=== PATIENT | female | born 1990 | race Caucasian/White ===

== ENCOUNTER 2016-12-17 23:27 | Emergency (ER) | payer OTHER ==
[2016-12-18] MEDS ORDERED: LIDOCAINE 1%/EPINEPHRINE INJ 20 ML VIAL INJ ONE
--- NOTE | 2016-12-18 00:52 | ER Document Report ---
ED General - General Chief Complaint: Laceration Stated Complaint: LEFT INDEX FINGER LACERATION Time Seen by Provider: 12/17/16 23:46 Notes: Patient is a 26-year-old female without past medical history, up-to-date on her tetanus immunization who presents with a flap type laceration to her left index finger. Patient sustained this laceration approximately 10 hours ago at work. States that it was cut on a piece of sheet metal. Since that time she has had a dull, constant, aching pain to the area. She has tried ibuprofen with minimal improvement of pain. Stretching area worsens the pain. No history of similar injury in the past. She denies any limited range of motion of the digit. She has not seen her primary care doctor regarding today's concerns. TRAVEL OUTSIDE OF THE [place] IN LAST 30 DAYS: No Past Medical History - General Information source: Patient - Social History Smoking Status: Never Smoker Frequency of alcohol use: Occasional Drug Abuse: None Lives with: Spouse/Significant other Family History: Reviewed & Not Pertinent Patient has suicidal ideation: No Patient has homicidal ideation: No Renal/ Medical History: Denies: Hx Peritoneal Dialysis Review of Systems - Review of Systems Notes: Constitutional: Negative for fever. Eyes: Negative for visual changes. ENT: Negative for facial injury Cardiovascular: Negative for chest injury. Respiratory: Negative for shortness of breath. Gastrointestinal: Negative for abdominal injury. Genitourinary: Negative for genital injury Musculoskeletal: Negative for back injury. Skin: Positive for laceration/abrasions. Neurological: Negative for head injury. Physical Exam - Vital signs Vitals: Temp Pulse Resp BP Pulse Ox 98.1 F 72 16 109/77 97 12/17/16 23:32 12/17/16 23:32 12/17/16 23:32 12/17/16 23:32 12/17/16 23:32 Interpretation: Normal Notes: PHYSICAL EXAMINATION: GENERAL: Well-appearing, well-nourished and in no acute distress. HEAD: Atraumatic, normocephalic. EYES: sclera anicteric, conjunctiva are normal. ENT: Moist mucous membranes. NECK: Normal range of motion LUNGS: Normal work of breathing HEART: 2+ radial pulses bilaterally EXTREMITIES: Full flexion and extension of the DIP, MCP and PIP of all digits of the bilateral hands. NEUROLOGICAL: No focal neurological deficits. Moves all extremities spontaneously and on command. PSYCH: Normal mood, normal affect. SKIN: Warm, Dry, normal turgor, flap type laceration over the ulnar aspect of the left index finger Course - Re-evaluation Re-evalutation: 12/18/16 00:50 Patient presents with a flap type laceration to her distal left pointer finger. The wound was irrigated after digital block was applied to the entire digit. After extensive irrigation of the wound was closed using 4 stitches. The patient's tetanus shot is already up to date. She had full flexion and extension of the digit at DIP, PIP and MCP both without and against resistance. No additional injuries or concerns. At this time will discharge with return precautions and follow-up recommendations. Verbal discharge instructions given a the bedside and opportunity for questions given. Medication warnings reviewed. Patient is in agreement with this plan and has verbalized understanding of return precautions and the need for primary care follow-up in the next 24-72 hours. - Vital Signs Vital signs: Temp Pulse Resp BP Pulse Ox 98.1 F 72 16 109/77 97 12/17/16 23:32 12/17/16 23:32 12/17/16 23:32 12/17/16 23:32 12/17/16 23:32 Procedures - Laceration/Wound Repair Left 2nd digit Time completed: 00:50 Wound length (cm): 2 Wound's Depth, Shape: Irregular, Flap Laceration pre-procedure: Sterile PPE donned Anesthetic type: 1% Lidocaine w/epi Volume Anesthetic (mLs): 2 - digital block Wound explored: Contaminated Irrigated w/ Saline (mLs): 1,000 Wound Debrided: Moderate Wound Repaired With: Sutures Suture Size/Type: 5:0 Number of Sutures: 4 Layer Closure?: No Post-procedure wound care: Sterile dressing applied Post-procedure NV exam normal: Yes Complications: No Discharge - Discharge Clinical Impression: Laceration of left index finger Condition: Good Disposition: HOME, SELF-CARE Additional Instructions: Please return to your primary doctor, the ED, or an urgent care in 7 days for suture removal. Return immediately if you develop spreading redness around the wound, pus from the wound, worsening pain, or a fever of >100.4. Keep the area clean and dry. Wash gently with soap and water twice daily and cover with antibiotic ointment.
[2016-12-18] MEDS ORDERED: IBUPROFEN 600 MG TABLET PO ONE (00:54)
[2016-12-18 04:06] VITALS: BP 109/71
== END 2016-12-18 01:20 | disposition home or self-care (01) ==
LOC: ER 23:27
PROC: 0HQGXZZ Repair Left Hand Skin, External Approach (ICD-10-PCS; principal; 2016-12-17)
DX: S61.211A Laceration without foreign body of left index finger without damage to nail, initial encounter (principal); W45.8XXA Other foreign body or object entering through skin, initial encounter
CPT/HCPCS: 99282; 12001; J3490